=== PATIENT | male | born 1960 | race Caucasian/White ===

== ENCOUNTER 2018-01-02 00:06 | Inpatient (IN) | payer BC ==
--- NOTE | 2018-01-02 00:37 | PDOC ---
History of Present Illness - General History Source: Patient, EMS, Family Exam Limitations: No Limitations, Intoxication - History of Present Illness Initial Comments: 01/02/18 00:59 The patient is a 57 year old male with past medical history of hypertension, hyperlipidemia, and depression who was brought in to the ED via EMS for intox. Since yesterday was , the patient was reminiscing of his son who had passed and started to binge drink. As per EMS the patient drank about 15 beers on top of taking 2 percocets, 1 xanax, and 10 unisom. In the ED the patient is asymptomatic. He states as soon as he leaves he will probably go back home and drink another beer. He denies any complaints. <Steph Colon - Last Filed: 01/02/18 01:50> <Carol Franco - Last Filed: 01/02/18 02:18> - General Chief Complaint: Alcohol intoxication Stated Complaint: INTOX,OVERDOSE Time Seen by Provider: 01/02/18 00:36 Past History <Steph Colon - Last Filed: 01/02/18 01:50> - Past Medical History HTN: Yes (not diagnosed) Hypercholesterolemia: Yes - Surgical History Abdominal Surgery: Yes (HERNIA) - Suicide/Smoking/Psychosocial Hx Smoking History: Current some day smoker Have you smoked in the past 12 months: No Information on smoking cessation initiated: No Hx Alcohol Use: Yes Drug/Substance Use Hx: Yes Substance Use Type: Alcohol <Carol Franco - Last Filed: 01/02/18 02:18> - Past Medical History Allergies/Adverse Reactions: Allergies Allergy/AdvReac Type Severity Reaction Status Date / Time No Known Allergies Allergy Verified 01/02/18 00:28 Home Medications: Ambulatory Orders Atorvastatin Ca [Lipitor -] 20 mg PO HS 04/14/15 Omeprazole [Prilosec] 20 mg PO DAILY 04/14/15 Oxycodone HCl/Acetaminophen [Percocet 10-325 mg Tablet -] 1 tab PO TID 04/14/15 Zolpidem Tartrate [Ambien] 2.5 mg PO HS 04/14/15 Review of Systems - Review of Systems Able to Perform ROS?: No (Intox) <Steph Colon - Last Filed: 01/02/18 01:50> *Physical Exam - Vital Signs Last Vital Signs Temp Pulse Resp BP Pulse Ox 98.1 F 95 H 20 120/100 01/02/18 00:25 01/02/18 00:25 01/02/18 00:25 01/02/18 00:25 - Physical Exam Comments: 01/02/18 00:59 GENERAL: Awake, alert, weepy, intoxicated HEAD: No signs of trauma EYES: PERRLA, EOMI, sclera anicteric, conjunctiva clear ENT: Auricles normal inspection, hearing grossly normal, nares patent, oropharynx clear without exudates. Moist mucosa NECK: Normal ROM, supple, no lymphadenopathy, JVD, or masses LUNGS: Breath sounds equal, clear to auscultation bilaterally. No wheezes, and no crackles HEART: Regular rate and rhythm, normal S1 and S2, no murmurs, rubs or gallops ABDOMEN: Reducible umbilical hernia, bilateral non-incarcerated inguinal hernias. Soft, nontender, normoactive bowel sounds. No guarding, no rebound. No masses EXTREMITIES: Normal range of motion, no edema. No clubbing or cyanosis. No cords, erythema, or tenderness NEUROLOGICAL: Cranial nerves II through XII grossly intact. Normal speech SKIN: Warm, Dry, normal turgor, no rashes or lesions noted. <Steph Colon - Last Filed: 01/02/18 01:50> - Vital Signs Last Vital Signs Temp Pulse Resp BP Pulse Ox 98.1 F 95 H 20 120/100 01/02/18 00:25 01/02/18 00:25 01/02/18 00:25 01/02/18 00:25 <Carol Franco - Last Filed: 01/02/18 02:18> ED Treatment Course - LABORATORY CBC & Chemistry Diagram: 01/02/18 01:00 01/02/18 01:00 <Steph Colon - Last Filed: 01/02/18 01:50> - LABORATORY CBC & Chemistry Diagram: 01/02/18 01:00 01/02/18 01:00 <Carol Franco - Last Filed: 01/02/18 02:18> Medical Decision Making - Medical Decision Making 01/02/18 02:03 57-year-old male is depressed on Father's Day because he's reminiscing about his son who 2 years ago. States that he drank about 15 beers, took 2 Percocets, lungs and examined 10 Unisom tablets. Spoke with poison control . I spoke with [id number] and the concerns for Unisom overdose are increased QRS intervals, increased CPKs due to rhabdomyolysis and seizures. - Recommended repeat chemistry in 4-6 hours and a repeat EKG and 4-6 hours. Concern also for respiratory depression with a combination of Xanax and alcohol Alcohol level of 232 Impression alcohol in tox, overdose. Admit <Carol Franco - Last Filed: 01/02/18 02:18> *DC/Admit/Observation/Transfer - Attestations Scribe Attestion: 01/02/18 01:01 Documentation prepared by Steph Colon, acting as medical records library professor for Carol Franco MD. <Steph Colon - Last Filed: 01/02/18 01:50> - Discharge Dispostion Decision to Admit order: Yes <Carol Franco - Last Filed: 01/02/18 02:18> Diagnosis at time of Disposition: Alcohol intoxication Qualifiers: Complication of substance-induced condition: uncomplicated Qualified Code(s): F10.920 - Alcohol use, unspecified with intoxication, uncomplicated Overdose of drug/medicinal substance Qualifiers: Encounter type: initial encounter Injury intent: undetermined intent Qualified Code(s): T50.904A - Poisoning by unspecified drugs, medicaments and biological substances, undetermined, initial encounter - Discharge Dispostion Condition at time of disposition: Fair
[2018-01-02] MEDS ORDERED: SODIUM CHLORIDE 1,000 ML IV STA (00:38)
[2018-01-02 01:17] LABS: BASO % 0.8 % (0-2.0); EOS % 1.2 % (0-4.5); HEMATOCRIT 41.8 % (35.4-49); HEMOGLOBIN 14.1 GM/dL (11.7-16.9); LYMPH % 34.8 % (8-40); MCH 32.4 pg (25.7-33.7); MCHC 33.7 g/dl (32.0-35.9); MEAN CELL VOLUME 95.9 fl (80-96); MEAN PLT VOLUME 9.7 fl (7.5-11.1); MONO % 11.9 % (3.8-10.2); NEUT % 51.3 % (42.8-82.8); PLATELET COUNT 136 K/MM3 (134-434); RBC 4.36 M/mm3 (4.00-5.60); RDW 14.6 % (11.9-15.9); WHITE BLOOD COUNT 6.3 K/mm3 (4.0-10.0)
[2018-01-02 01:27] LABS: INR 1.17 (0.82-1.09); PROTHROMBIN TIME (PATIENT) 13.2 SEC (9.7-13.0)
[2018-01-02 01:37] LABS: SALICYLATE < 1.70 mg/dL
[2018-01-02 01:38] LABS: ALBUMIN 3.8 g/dl (3.4-5.0); ALK PHOS 95 U/L (45-117); ANION GAP 9 (8-16); BILIRUBIN,TOTAL 0.7 mg/dL (0.2-1.0); BLOOD UREA NITROGEN 17 mg/dL (7-18); CALCIUM 9.8 mg/dL (8.5-10.1); CHLORIDE 105 mmol/L (98-107); CO2 24 mmol/L (21-32); CREATININE 0.9 mg/dL (0.7-1.3); GLUCOSE,RANDOM 100 mg/dL (74-106); POTASSIUM 4.2 mmol/L (3.5-5.1); SGOT/AST 188 U/L (15-37); SGPT/ALT 155 U/L (12-78); SODIUM 138 mmol/L (136-145); TOT PROT 7.7 g/dl (6.4-8.2)
[2018-01-02 01:39] LABS: ACETAMINOPHEN <2.0 ug/mL
[2018-01-02] MEDS ORDERED: FOLIC ACID INJECTION - 1 MG, THIAMINE HCL 100 MG, MULTIVIT INJECTION ADULT 10 ML in SOD... IVPB ONE (01:46)
[2018-01-02 02:03] LABS: URINE APPEARANCE CLEAR; URINE BILIRUBIN NEGATIVE (<2.0 mg/dL); URINE COLOR COLORLESS; URINE GLUCOSE (UA) NEGATIVE (NEGATIVE); URINE KETONE NEGATIVE (NEGATIVE); URINE LEUK ESTERASE NEGATIVE (NEGATIVE); URINE NITRITE NEGATIVE (NEGATIVE); URINE PROTEIN NEGATIVE (NEGATIVE); URINE UROBILINOGEN NEGATIVE mg/dL (0.2-1.0)
[2018-01-02 03:08] LABS: COCAINE, UR NEGATIVE ng/ml (CUTOFF=300); METHADONE, UR NEGATIVE ng/ml (CUTOFF=300); OPIATES, URI NEGATIVE ng/ml (CUTOFF=300); PHENCYCLIDINE,URINE NEGATIVE ng/ml (CUTOFF=25); URINE AMPHETAMINES NEGATIVE ng/ml (CUTOFF=500); URINE BARBITURATES NEGATIVE ng/ml (CUTOFF=200); URINE BENZODIAZEPINES NEGATIVE ng/ml (CUTOFF=200)
--- NOTE | 2018-01-02 03:20 | HP ---
CHIEF COMPLAINT: ETOH, unisom overdose PCP: HISTORY OF PRESENT ILLNESS: This is a 57 year old male with past medical history of HT, HLD, depression who was brought to ED by family who due to alcohol intoxication and pill ingestion. EMS and pt report he drank about 15 beers, took about 10 unisom, 2 oxycodone ( total 20mg) and one xanax. Pt states that he wasn't trying to hurt himself or kill himself; he just wants to sleep. As it is father's day he was thinking of his son and became upset. Upon exam pt is intoxicated, able to answer simple questions. He is complaining of inability to sit still. ER course was notable for: (1) Alcohol 232 (2) salicylate and tylenol levels negative (3) Recent Travel: unknown PAST MEDICAL HISTORY: HTN, HLD, depression PAST SURGICAL HISTORY: hernia Social History: Smoking: unk Alcohol: denies habitual use Drugs: denies habitual use Family History: unk Allergies No Known Allergies Allergy (Verified 01/02/18 00:28) HOME MEDICATIONS: 3 Medication Instructions Recorded Atorvastatin Ca [Lipitor -] 20 mg PO HS 04/14/15 Lisinopril 0 mg PO DAILY 01/02/18 Metoprolol Tartrate 0 mg PO DAILY 01/02/18 Oxycodone HCl 10 mg PO QID PRN 01/02/18 REVIEW OF SYSTEMS CONSTITUTIONAL: Absent: fever, chills, diaphoresis, generalized weakness, malaise, loss of appetite, weight change HEENT: Absent: rhinorrhea, nasal congestion, throat pain, throat swelling, difficulty swallowing, mouth swelling, ear pain, eye pain, visual changes CARDIOVASCULAR: Absent: chest pain, syncope, palpitations, irregular heart rate, lightheadedness , peripheral edema RESPIRATORY: Absent: cough, shortness of breath, dyspnea with exertion, orthopnea, wheezing, stridor, hemoptysis GASTROINTESTINAL: Absent: abdominal pain, abdominal distension, nausea, vomiting, diarrhea, constipation, melena, hematochezia GENITOURINARY: Absent: dysuria, frequency, urgency, hesitancy, hematuria, flank pain, genital pain MUSCULOSKELETAL: Absent: myalgia, arthralgia, joint swelling, back pain, neck pain SKIN: Absent: rash, itching, pallor HEMATOLOGIC/IMMUNOLOGIC: Absent: easy bleeding, easy bruising, lymphadenopathy, frequent infections ENDOCRINE: Absent: unexplained weight gain, unexplained weight loss, heat intolerance, cold intolerance NEUROLOGIC: Absent: headache, focal weakness or paresthesias, dizziness, unsteady gait, seizure, mental status changes, bladder or bowel incontinence PSYCHIATRIC: depression, alcohol intoxication Absent: anxiety, suicidal or homicidal ideation, hallucinations. PHYSICAL EXAMINATION Vital Signs - 24 hr 3 01/02/18 01/02/18 00:25 02:50 Temperature 98.1 F Pulse Rate 95 H 78 Respiratory 20 16 Rate Blood Pressure 120/100 114/72 GENERAL: Awake, alert, and fully oriented, in no acute distress. HEAD: Normal with no signs of trauma. EYES: Pupils equal, round and reactive to light, extraocular movements intact, sclera anicteric, conjunctiva clear. No lid lag. EARS, NOSE, THROAT: Ears normal, nares patent, oropharynx clear without exudates. Moist mucous membranes. NECK: Normal range of motion, supple without lymphadenopathy, JVD, or masses. LUNGS: Breath sounds equal, clear to auscultation bilaterally. No wheezes, and no crackles. No accessory muscle use. HEART: Regular rate and rhythm, normal S1 and S2 without murmur, rub or gallop. ABDOMEN: Soft, not distended, normoactive bowel sounds, no guarding, no rebound , no masses. No hepatomegaly or splenomegaly. Initially tender upon exam, resolved after urinating 850cc. MUSCULOSKELETAL: Normal range of motion at all joints. No bony deformities or tenderness. No CVA tenderness. R flank noted with soft tissue mass, mobile, nontender, approx 5cm x 2cm x 2cm UPPER EXTREMITIES: 2+ pulses, warm, well-perfused. No cyanosis. No clubbing. No peripheral edema. LOWER EXTREMITIES: 2+ pulses, warm, well-perfused. No calf tenderness. No peripheral edema. NEUROLOGICAL: Cranial nerves II-XII intact. Normal speech. Unsteady gait. involuntary jerking of legs, body; resolved after urinating PSYCHIATRIC: Cooperative. Good eye contact. Appropriate mood and affect. SKIN: Warm, dry, normal turgor, no rashes or lesions noted, normal capillary refill. Laboratory Results - last 24 hr 3 01/02/18 01/02/18 01/02/18 01:00 01:00 01:00 WBC 6.3 RBC 4.36 Hgb 14.1 Hct 41.8 MCV 95.9 MCH 32.4 MCHC 33.7 RDW 14.6 Plt Count 136 MPV 9.7 Absolute Neuts (auto) 3.2 Neutrophils % 51.3 Lymphocytes % 34.8 Monocytes % 11.9 H Eosinophils % 1.2 Basophils % 0.8 Nucleated RBC % 0 PT with INR 13.20 H INR 1.17 H Sodium 138 Potassium 4.2 Chloride 105 Carbon Dioxide 24 Anion Gap 9 BUN 17 Creatinine 0.9 Creat Clearance w eGFR > 60 Random Glucose 100 Calcium 9.8 Total Bilirubin 0.7 AST 188 H ALT 155 H Alkaline Phosphatase 95 Total Protein 7.7 Albumin 3.8 Urine Color Urine Appearance Urine pH Ur Specific Baker Urine Protein Urine Glucose (UA) Urine Ketones Urine Blood Urine Nitrite Urine Bilirubin Urine Urobilinogen Ur Leukocyte Esterase Salicylates Acetaminophen Alcohol, Quantitative 3 01/02/18 01/02/18 01:00 01:20 WBC RBC Hgb Hct MCV MCH MCHC RDW Plt Count MPV Absolute Neuts (auto) Neutrophils % Lymphocytes % Monocytes % Eosinophils % Basophils % Nucleated RBC % PT with INR INR Sodium Potassium Chloride Carbon Dioxide Anion Gap BUN Creatinine Creat Clearance w eGFR Random Glucose Calcium Total Bilirubin AST ALT Alkaline Phosphatase Total Protein Albumin Urine Color Colorless Urine Appearance Clear Urine pH 5.0 Ur Specific Baker 1.003 Urine Protein Negative Urine Glucose (UA) Negative Urine Ketones Negative Urine Blood Negative Urine Nitrite Negative Urine Bilirubin Negative Urine Urobilinogen Negative Ur Leukocyte Esterase Negative Salicylates < 1.70 Acetaminophen <2.0 Alcohol, Quantitative 232.9 H* ECG Normal sinus rhythm Vent rate 80, QTC [address]/T wave changes ASSESSMENT/PLAN: 57yM with PMH HTN, HLD, depression presented to the ED with alcohol intoxication and pill ingestion. Unisom overdose - unsure whether active ingredient diphenhydramine or doxylamine - D/W poison control who states severe toxic effects such as seizure activity not likely to be seen until 7mg/kg ingestion, pt reported ingestion is 3mg/kg - monitor for anticholingergic effects, QRS prolongation and seizures - recommend repeat BMP and ECG 4-6 hours, labs and ecg ordered for am - psych consult ETOH intoxication - banana bag given in ED. - monitor until sober soft tissue mass right flank, likely fatty lipoma - nontender, pt states it used to be larger. Outpatient follow up with PCP elevated LFTs - repeat in am - consider US in am vs outpatient workup HTN/HLD - hold home meds for now, pt unsure of dosages DVT PPX - heparin deferred as anticipated LOS <48h FEN - tolerating po - BMP in am - low sodium diet as tolerated in am Dispo: Pt currently requires further observation. Hospitalist Screening - Colonoscopy Questionnaire Colonoscopy Questionnaire: Colonoscopy Questionnaire
[2018-01-02 06:46] LABS: BASO % 0.9 % (0-2.0); EOS % 1.3 % (0-4.5); HEMOGLOBIN 12.4 GM/dL (11.7-16.9); LYMPH % 38.3 % (8-40); MCH 32.8 pg (25.7-33.7); MCHC 34.3 g/dl (32.0-35.9); MEAN CELL VOLUME 95.6 fl (80-96); MEAN PLT VOLUME 8.8 fl (7.5-11.1); MONO % 11.7 % (3.8-10.2); NEUT % 47.8 % (42.8-82.8); PLATELET COUNT 77 K/MM3 (134-434); RBC 3.77 M/mm3 (4.00-5.60); RDW 14.2 % (11.9-15.9); WHITE BLOOD COUNT 3.3 K/mm3 (4.0-10.0)
[2018-01-02 07:11] LABS: ALBUMIN 3.2 g/dl (3.4-5.0); ANION GAP 6 (8-16); BLOOD UREA NITROGEN 16 mg/dL (7-18); CALCIUM 8.8 mg/dL (8.5-10.1); CHLORIDE 112 mmol/L (98-107); CO2 24 mmol/L (21-32); GLUCOSE,RANDOM 91 mg/dL (74-106); MAGNESIUM 1.6 mg/dL (1.8-2.4); PHOSPHOROUS 2.5 mg/dL (2.5-4.9); POTASSIUM 4.7 mmol/L (3.5-5.1); SGOT/AST 134 U/L (15-37); SGPT/ALT 119 U/L (12-78); SODIUM 142 mmol/L (136-145)
[2018-01-02 07:13] LABS: ALK PHOS 75 U/L (45-117); BILIRUBIN,TOTAL 0.9 mg/dL (0.2-1.0); CREATININE 0.8 mg/dL (0.7-1.3); TOT PROT 6.3 g/dl (6.4-8.2)
--- NOTE | 2018-01-02 08:39 | PN ---
Mental Health Exam - Mental Status Exam Alert and Oriented to: Time, Place, Person Cognitive Function: Grossly Intact Patient Appearance: Unkempt, Disheveled Mood: Depressed, Fearful, Apprehensive, Irritable Affect: Labile Patient Behavior: Crying, Fearful, Cooperative Speech Pattern: Clear, Tangential Voice Loudness: Mildly Soft/Quiet Thought Process: Circumstantial, Tangential Thought Disorder: Not Present Hallucinations: Denies Suicidal Ideation: Current (WANT TO , FEELS LIFE IS HOPELESS. ), Plan Homicidal Ideation: None Insight/Judgement: Impaired (TAKE AN OD IN ATTEMPT NOT TO WAKE UP. ) Sleep: Difficulty falling asleep Appetite: Poor, Weight loss Muscle strength/Tone: Normal Gait/Station: Deferred
--- NOTE | 2018-01-02 08:45 | PN ---
Progress Note (short form) - Note Progress Note: THIS IS A 57 YO MALE WITH SEVERE SUICIDAL IDEATION WITH A PLAN TO KILL HIMSELF LAST EVENING BY OVER DOSE ON VARIOUS OVER COUNTER PILLS AND ALCHOL. FEELS HOPELESS, HELPLESS, TEARFUL WHEN SPEAKING ABOUT LOSS OF HIS SON RECENTLY, ESPECIALLY ACUTE ON DAY. AND BEREAVEMENT OF PARENTS THAT HE HAS NOT DEALTH WITH. HAS 1 SURVIVING DAUGHTER IN [place]. . BROTHER AND NIECE LIVE IN 2 FAMILY HOME IN SEPARATE APARTMENTS. HE IS IN THERAPY BUT UNABLE TO SEE [id number] AND NEEDS INPATIENT PSYCHIARTY CARE. SPOKE WITH RN IN CHARGE [facility] IN eR.
[2018-01-02] MEDS ORDERED: MAGNESIUM OXIDE 400 MG TABLET (FP) PO ONE (10:00)
--- NOTE | 2018-01-02 10:39 | PN ---
Progress Note (short form) - Note Progress Note: Subjective: The patient was seen in the ED, 1:1 observation. The patient reports he took "the pills to not wake up". He reports hopelessness and helplessness. He states suicidal ideations. 2PC paperwork in chart signed Objective: Vital Signs Period Temp Pulse Resp BP Sys/Mcgrath Pulse Ox Last 24 Hr 98.1 F 79-95 18-20 114-120/61-100 95-100 Physical Exam: General: NAD, A&Ox3 Lungs: CTA bilaterally Heart: RRR, S1S2 Abd: Soft, non-tender, non-distended Ext: Warm, well-perfused. No edema CBCD WBC 3.3 K/mm3 (4.0-10.0) L D 01/02/18 06:25 RBC 3.77 M/mm3 (4.00-5.60) L 01/02/18 06:25 Hgb 12.4 GM/dL (11.7-16.9) D 01/02/18 06:25 Hct 36.0 % (35.4-49) 01/02/18 06:25 MCV 95.6 fl (80-96) 01/02/18 06:25 MCHC 34.3 g/dl (32.0-35.9) 01/02/18 06:25 RDW 14.2 % (11.9-15.9) 01/02/18 06:25 Plt Count 77 K/MM3 (134-434) L D 01/02/18 06:25 MPV 8.8 fl (7.5-11.1) 01/02/18 06:25 CMP Sodium 142 mmol/L (136-145) 01/02/18 06:25 Potassium 4.7 mmol/L (3.5-5.1) 01/02/18 06:25 Chloride 112 mmol/L (98-107) H 01/02/18 06:25 Carbon Dioxide 24 mmol/L (21-32) 01/02/18 06:25 Anion Gap 6 (8-16) L 01/02/18 06:25 BUN 16 mg/dL (7-18) 01/02/18 06:25 Creatinine 0.8 mg/dL (0.7-1.3) 01/02/18 06:25 Creat Clearance w eGFR > 60 (>60) 01/02/18 06:25 Random Glucose 91 mg/dL (74-106) 01/02/18 06:25 Calcium 8.8 mg/dL (8.5-10.1) 01/02/18 06:25 Total Bilirubin 0.9 mg/dL (0.2-1.0) D 01/02/18 06:25 AST 134 U/L (15-37) H D 01/02/18 06:25 ALT 119 U/L (12-78) H D 01/02/18 06:25 Alkaline Phosphatase 75 U/L (45-117) D 01/02/18 06:25 Total Protein 6.3 g/dl (6.4-8.2) L 01/02/18 06:25 Albumin 3.2 g/dl (3.4-5.0) L 01/02/18 06:25 Assessment: This is a 57 year old female with PMHx of CAD (cardiac stents 3 years ago), HTN, hyperlipidemia, chronic back pain, who presented to the ED s/p suicide attempt with pill ingestion (unisom, oxycodone, xanax). Plan: 1) Suicide attempt/ideation - 2PC - 1:1 observation - For inpatient psych placement - Appreciate psych consult 2) Alcohol intoxication - No evidence of alcohol withdrawal, continue to monitor 3) Elevated AST/ALT - Levels trending down, will need outpatient follow-up in 2-3 days 4) Depression - For inpatient psych treatment 5) CAD s/p cardiac stents (3 years ago) - Continue ASA - Continue Lipitor 6) HTN - Continue Toprol XL - Continue Lisinopril 7) GERD - Continue Omeprazole 8) F/E/N: - Sodium controlled diet 9) Dispo: - Patient medically stable for transfer to inpatient psychiatric facility - Discussed plan with patient and brother (Cortez) at the bedside Visit type - Emergency Visit Emergency Visit: Yes ED Registration Date: 01/02/18 Care time: The patient presented to the Emergency Department on the above date and was hospitalized for further evaluation of their emergent condition. - New Patient This patient is new to me today: Yes Date on this admission: 01/02/18 - Critical Care Critical Care patient: No
[2018-01-02] MEDS ORDERED: metoPROLOL SUCCINATE 25 MG TAB.SR.24H (FP) PO SCH (11:15)
[2018-01-02] MEDS ORDERED: LISINOPRIL 10 MG TABLET (FP) PO SCH (11:15)
[2018-01-02] MEDS ORDERED: ASPIRIN COATED 81 MG TABLET.EC PO SCH (11:15)
[2018-01-02] MEDS ORDERED: PANTOPRAZOLE 40 MG TABLET (FP) PO SCH (11:15)
[2018-01-02] MEDS ORDERED: PANTOPRAZOLE 40 MG TABLET (FP) ONE (12:48)
[2018-01-02] MEDS ORDERED: LISINOPRIL 5 MG TABLET (FP) ONE (12:48)
[2018-01-02] MEDS ORDERED: ASPIRIN 81 MG CHEWABLE TABLETS ONE (12:49)
--- NOTE | 2018-01-02 13:54 | EKG ---
Test Reason : Blood Pressure : / mmHG Vent. Rate : 080 BPM Atrial Rate : 080 BPM P-R Int : 124 ms QRS Dur : 104 ms QT Int : 384 ms P-R-T Axes : 023 064 052 degrees QTc Int : 442 ms NORMAL SINUS RHYTHM NORMAL ECG NO PREVIOUS ECGS AVAILABLE Confirmed by CLYDE METCALF MD ([id number]) on 01/02/2018 1:54:03 PM Referred By: Confirmed By:CLYDE METCALF MD
[2018-01-02] MEDS ORDERED: ESCITALOPRAM OXALATE 10 MG TABLET (FP) PO ONE (16:37)
[2018-01-02] MEDS ORDERED: chlordiazePOXIDE HCL 25 MG CAPSULE PO ONE (17:19)
[2018-01-02] MEDS ORDERED: ESCITALOPRAM OXALATE 10 MG TABLET (FP) ONE (17:31)
[2018-01-02] MEDS ORDERED: chlordiazePOXIDE HCL 25 MG CAPSULE ONE (17:33)
[2018-01-02] MEDS ORDERED: ATORVASTATIN CA 80 MG TABLET (FP) ONE ×2 (21:48→22:00)
[2018-01-02] MEDS ORDERED: ATORVASTATIN CA 80 MG TABLET (FP) PO SCH (22:00)
--- NOTE | 2018-01-02 22:26 | PDOC ---
*Physical Exam - Vital Signs Last Vital Signs Temp Pulse Resp BP Pulse Ox 98 F 74 20 130/85 97 01/02/18 13:12 01/02/18 13:12 01/02/18 13:12 01/02/18 13:12 01/02/18 19:43 ED Treatment Course - LABORATORY CBC & Chemistry Diagram: 01/02/18 06:25 01/02/18 06:25 - ADDITIONAL ORDERS Additional order review: 01/02/18 01:00 RBC 4.36 MCV 95.9 MCHC 33.7 RDW 14.6 MPV 9.7 Neutrophils % 51.3 Lymphocytes % 34.8 Monocytes % 11.9 H Eosinophils % 1.2 Basophils % 0.8 - Medications Given in the ED: ED Medications Discontinued Medications Generic Name Dose Route Start Last Admin Trade Name Freq PRN Reason Stop Dose Admin Chlordiazepoxide HCl 50 mg 01/02/18 17:19 01/02/18 17:37 Librium - PO 01/02/18 17:20 50 mg ONCE ONE Administration Escitalopram Oxalate 10 mg 01/02/18 16:37 01/02/18 17:37 Lexapro - PO 01/02/18 16:38 10 mg NOW ONE Administration Sodium Chloride 1,000 mls @ 1,000 mls/hr 01/02/18 00:38 01/02/18 01:39 Normal Saline - IV 01/02/18 01:37 1,000 mls/hr ASDIR STA Administration Folic Acid 1 mg/ Thiamine HCl 1,000 mls @ 125 mls/hr 01/02/18 01:46 01/02/18 02:15 100 mg/ Multivitamins/Minerals IVPB 01/02/18 09:45 125 mls/hr 10 ml/ Sodium Chloride ONCE ONE Administration Magnesium Oxide 400 mg 01/02/18 10:00 01/02/18 13:11 Mag-Ox - PO 01/02/18 10:01 400 mg ONCE ONE Administration Medical Decision Making - Medical Decision Making 01/02/18 22:26 pt DOWNGRADED to MED/surg *DC/Admit/Observation/Transfer Diagnosis at time of Disposition: Alcohol intoxication Qualifiers: Complication of substance-induced condition: uncomplicated Qualified Code(s): F10.920 - Alcohol use, unspecified with intoxication, uncomplicated Overdose of drug/medicinal substance Qualifiers: Encounter type: initial encounter Injury intent: undetermined intent Qualified Code(s): T50.904A - Poisoning by unspecified drugs, medicaments and biological substances, undetermined, initial encounter - Discharge Dispostion Condition at time of disposition: Fair Decision to Admit order: Yes - Referrals - Patient Instructions - Post Discharge Activity
[2018-01-03 02:53] VITALS: BMI 25.1
[2018-01-03] MEDS: chlordiazePOXIDE HCL 25 MG CAPSULE PO PRN ×2 (06:16→10:44)
[2018-01-03 08:11] LABS: ALBUMIN 3.4 g/dl (3.4-5.0); ANION GAP 7 (8-16); BILIRUBIN,TOTAL 1.8 mg/dL (0.2-1.0); BLOOD UREA NITROGEN 19 mg/dL (7-18); CALCIUM 9.6 mg/dL (8.5-10.1); CHLORIDE 110 mmol/L (98-107); CO2 24 mmol/L (21-32); CREATININE 0.9 mg/dL (0.7-1.3); GLUCOSE,RANDOM 94 mg/dL (74-106); POTASSIUM 3.8 mmol/L (3.5-5.1); SGOT/AST 168 U/L (15-37); SGPT/ALT 142 U/L (12-78); SODIUM 141 mmol/L (136-145)
[2018-01-03 08:12] LABS: ALK PHOS 85 U/L (45-117); TOT PROT 6.6 g/dl (6.4-8.2)
[2018-01-03] MEDS ORDERED: LISINOPRIL 10 MG TABLET (FP) PO SCH (10:00)
[2018-01-03] MEDS ORDERED: metoPROLOL SUCCINATE 25 MG TAB.SR.24H (FP) PO SCH (10:00)
[2018-01-03] MEDS ORDERED: PANTOPRAZOLE 40 MG TABLET (FP) PO SCH (10:00)
[2018-01-03] MEDS ORDERED: ASPIRIN COATED 81 MG TABLET.EC PO SCH (10:00)
[2018-01-03 14:15] VITALS: BP 135/58; PULSE 75; TEMP 97.4
--- NOTE | 2018-01-03 15:13 | EKG ---
Test Reason : Blood Pressure : / mmHG Vent. Rate : 071 BPM Atrial Rate : 071 BPM P-R Int : 136 ms QRS Dur : 108 ms QT Int : 400 ms P-R-T Axes : 058 063 053 degrees QTc Int : 434 ms NORMAL SINUS RHYTHM NORMAL ECG WHEN COMPARED WITH ECG OF 02-JAN-2018 01:02, NO SIGNIFICANT CHANGE WAS FOUND Confirmed by MD Mcdonnell Edward ([id number]) on 01/03/2018 3:12:50 PM Referred By: Confirmed By:Joce Mcdonnell MD
--- NOTE | 2018-01-03 15:25 | PN ---
Progress Note (short form) - Note Progress Note: Subjective: The patient was seen in the solar[facility], he is still on 1:1 observation. He reports he would like to go home and go back to work. Denies any suicidal ideation at this time. Elevated liver enzymes and total bili. Patient refusing repeat labs and is refusing liver ultrasound/hepatitis panel. He states he does not want any further workup for his liver at this time. He denies any fever, chills, abdominal pain Current Medications Generic Name Dose Route Start Last Admin Trade Name Freq PRN Reason Stop Dose Admin Aspirin 81 mg 01/03/18 10:00 01/03/18 10:44 Ecotrin - PO 81 mg DAILY DANTE Administration Atorvastatin Calcium 80 mg 01/03/18 22:00 Lipitor - PO HS DANTE Chlordiazepoxide HCl 25 mg 01/02/18 18:53 01/03/18 10:44 Librium - PO 25 mg Q4H PRN Administration WITHDRAWAL(CONT SUBST) Lisinopril 10 mg 01/03/18 10:00 01/03/18 10:44 Prinivil PO 10 mg DAILY DANTE Administration Metoprolol Succinate 25 mg 01/03/18 10:00 Toprol Xl - PO DAILY DANTE Pantoprazole Sodium 40 mg 01/03/18 10:00 01/03/18 10:44 Protonix - PO 40 mg DAILY DANTE Administration Objective: Vital Signs Period Temp Pulse Resp BP Sys/Mcgrath Pulse Ox Last 24 Hr 97.4 F-98.1 F 68-75 20-20 135-156/58-80 97-100 Physical Exam: General: NAD, A&Ox3 Lungs: CTA bilaterally Heart: RRR, S1S2 Abd: Soft, non-tender, non-distended Ext: Warm, well-perfused. No edema CBCD WBC 3.3 K/mm3 (4.0-10.0) L D 01/02/18 06:25 RBC 3.77 M/mm3 (4.00-5.60) L 01/02/18 06:25 Hgb 12.4 GM/dL (11.7-16.9) D 01/02/18 06:25 Hct 36.0 % (35.4-49) 01/02/18 06:25 MCV 95.6 fl (80-96) 01/02/18 06:25 MCHC 34.3 g/dl (32.0-35.9) 01/02/18 06:25 RDW 14.2 % (11.9-15.9) 01/02/18 06:25 Plt Count 77 K/MM3 (134-434) L D 01/02/18 06:25 MPV 8.8 fl (7.5-11.1) 01/02/18 06:25 CMP Sodium 141 mmol/L (136-145) 01/03/18 06:30 Potassium 3.8 mmol/L (3.5-5.1) 01/03/18 06:30 Chloride 110 mmol/L (98-107) H 01/03/18 06:30 Carbon Dioxide 24 mmol/L (21-32) 01/03/18 06:30 Anion Gap 7 (8-16) L 01/03/18 06:30 BUN 19 mg/dL (7-18) H 01/03/18 06:30 Creatinine 0.9 mg/dL (0.7-1.3) 01/03/18 06:30 Creat Clearance w eGFR > 60 (>60) 01/03/18 06:30 Random Glucose 94 mg/dL (74-106) 01/03/18 06:30 Calcium 9.6 mg/dL (8.5-10.1) 01/03/18 06:30 Total Bilirubin 1.8 mg/dL (0.2-1.0) H D 01/03/18 06:30 AST 168 U/L (15-37) H D 01/03/18 06:30 ALT 142 U/L (12-78) H 01/03/18 06:30 Alkaline Phosphatase 85 U/L (45-117) 01/03/18 06:30 Total Protein 6.6 g/dl (6.4-8.2) 01/03/18 06:30 Albumin 3.4 g/dl (3.4-5.0) 01/03/18 06:30 CARDIAC ENZYMES Creatine Kinase 70 IU/L (39-308) 01/03/18 06:30 Assessment: This is a 57 year old female with PMHx of CAD (cardiac stents 3 years ago), HTN, hyperlipidemia, chronic back pain, who presented to the ED s/p suicide attempt with pill ingestion (unisom, oxycodone, xanax). Plan: 1) Suicide attempt/ideation - 2PC - 1:1 observation - For inpatient psych placement - Appreciate psych consult; awaiting reevaluation by psych 2) Alcohol intoxication - No evidence of alcohol withdrawal, continue to monitor - PRN librium 3) Elevated AST/ALT/total bili - Patient refusing workup (including labs, liver ultrasound, hepatitis panel) 4) Depression - For inpatient psych treatment 5) CAD s/p cardiac stents (3 years ago) - Continue ASA - Continue Lipitor 6) HTN - Continue Toprol XL - Continue Lisinopril 7) GERD - Continue Omeprazole 8) F/E/N: - Sodium controlled diet 9) Dispo: - Patient medically stable for transfer to inpatient psychiatric facility Visit type - Emergency Visit Emergency Visit: Yes ED Registration Date: 01/02/18 Care time: The patient presented to the Emergency Department on the above date and was hospitalized for further evaluation of their emergent condition. - New Patient This patient is new to me today: No - Critical Care Critical Care patient: No
--- NOTE | 2018-01-03 17:05 | PN ---
Mental Health Exam - Mental Status Exam Alert and Oriented to: Time, Place, Person Cognitive Function: Grossly Intact Patient Appearance: Unkempt Mood: Apprehensive, Hopeful Affect: Appropriate, Mood Congruent Patient Behavior: Talkative, Cooperative Speech Pattern: Clear, Tangential Voice Loudness: Normal Thought Process: Intact Thought Disorder: Not Present Hallucinations: None Suicidal Ideation: Denies, No Plan Homicidal Ideation: None Insight/Judgement: Fair Sleep: Well Appetite: Good Muscle strength/Tone: Normal Gait/Station: Deferred
--- NOTE | 2018-01-03 17:18 | PN ---
Progress Note (short form) - Note Progress Note: THIS IS A 57 YO MALE WITH SEVERE SUICIDAL IDEATION WITH A PLAN TO KILL HIMSELF LAST EVENING BY OVER DOSE ON VARIOUS OVER COUNTER PILLS AND ALCHOL. FEELS HOPELESS, HELPLESS, TEARFUL WHEN SPEAKING ABOUT LOSS OF HIS SON RECENTLY, ESPECIALLY ACUTE ON DAY. AND BEREAVEMENT OF PARENTS THAT HE HAS NOT DEALTH WITH. HAS 1 SURVIVING DAUGHTER IN [place]. . BROTHER AND NIECE LIVE IN 2 FAMILY HOME IN SEPARATE APARTMENTS. HE IS IN THERAPY BUT UNABLE TO SEE [id number] IN [facility] AND NEEDS INPATIENT PSYCHIARTY CARE. SPOKE WITH RN IN CHARGE Collin IN e[place]. cLIENT IS SEE ON , [phone]. cLIENT IS HOPEFUL. BED BECAME AVAILABLE AT [facility]. HE IS WITH 2/10 ANXIETY, LESS WITHRAWN, VITALS wnl, REDDENED FACE. 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 DENIES SUICIDAL IDEATION, NO PLAN AT PRESENT. cLIENT WILL FOLLOW UP WITH THERAPIST IN THE COMMUNITY, HE HAS COMPETENCE TO MAKE OWN DECISIONS. SPOKE WITH umang SOSA AND RN IRON JARA ALSO. RECOMMEND START LEXAPRO 10MG DAILY, PATIENT IS AWARE,
--- NOTE | 2018-01-03 17:28 | DS ---
Physical Examination Vital Signs: Vital Signs Temperature 97.4 F L 01/03/18 14:14 Pulse Rate 75 01/03/18 14:14 Respiratory Rate 20 01/03/18 14:14 Blood Pressure 135/58 01/03/18 14:14 O2 Sat by Pulse Oximetry (%) 100 01/03/18 11:00 Labs: CBC, BMP 01/02/18 06:25 01/03/18 06:30 Discharge Summary Reason For Visit: ALCOHOLIC INTOX DRUG OVERDOSE Current Active Problems Alcohol intoxication (Acute) Overdose of drug/medicinal substance (Acute) Hospital Course: Discussed with LADI Au who has evaluated the patient and reports he has capacity to leave against medical advice and the patient no longer requires a 1: 1 observation or inpatient psych. The patient is refusing further workup for his elevated liver enzymes and would like to sign out AMA. Condition: Improved - Instructions Diet, Activity, Other Instructions: You are leaving against medical advice. Please return to the ED with new, persistent, or worsening symptoms. Please follow-up with providers as indicated. If you have any thoughts of suicide, please call the suicide prevention hotline and go to the nearest emergency department immediately. Referrals: Alek Au NP [Nurse Practitioner] - (Please follow-up with Alek Au NP within 2-3 days for further management of your depression and substance abuse. ) Edmundo Barba MD [Staff Physician] - 1 Week Garcia Calhoun MD [Staff Physician] - (Please follow-up with GI tomorrow for further evaluation of your liver enzymes. ) Disposition: AGAINST MEDICAL ADVICE - Home Medications Comprehensive Discharge Medication List: Ambulatory Orders Aspirin Coated [Ecotrin -] 81 mg PO DAILY #30 tablet.ec 01/03/18 Atorvastatin Ca [Lipitor] 80 mg PO HS #30 tablet 01/03/18 Escitalopram Oxalate [Lexapro -] 10 mg PO DAILY #30 tablet 01/03/18 Lisinopril [Prinivil] 10 mg PO DAILY #30 tablet 01/03/18 Metoprolol Succinate [Toprol XL -] 25 mg PO DAILY #30 tab.sr.24h 01/03/18 Pantoprazole Sodium [Protonix -] 40 mg PO DAILY #30 tablet.ec 01/03/18
[2018-01-03] MEDS ORDERED: ATORVASTATIN CA 80 MG TABLET (FP) PO SCH (22:00)
[2018-01-04 06:06] LABS: HEP.C VIRUS AB <0.1 s/co ratio (0.0-0.9)
== END 2018-01-03 18:42 | disposition left against medical advice (07) | DRG 918 ==
LOC: JER 00:06 → JERBED 02:18 → UNDOADMIN 02:35 → JERBED 02:35 → J5S 01-03 01:12
PROVIDERS: ADMIT Internal Medicine; ATTEND Registered Nurse
PROC: HZ2ZZZZ Detoxification Services for Substance Abuse Treatment (ICD-10-PCS; principal; 2018-01-02)
DX: T45.0X1A Poisoning by antiallergic and antiemetic drugs, accidental (unintentional), initial encounter (principal); R45.851 Suicidal ideations; T40.2X1A Poisoning by other opioids, accidental (unintentional), initial encounter; F10.920 Alcohol use, unspecified with intoxication, uncomplicated; T42.4X1A Poisoning by benzodiazepines, accidental (unintentional), initial encounter; Y92.098 Other place in other non-institutional residence as the place of occurrence of the external cause; I10 Essential (primary) hypertension; E78.00 Pure hypercholesterolemia, unspecified; F32.9 Major depressive disorder, single episode, unspecified; D17.79 Benign lipomatous neoplasm of other sites; K21.9 Gastro-esophageal reflux disease without esophagitis; I25.10 Atherosclerotic heart disease of native coronary artery without angina pectoris; M54.9 Dorsalgia, unspecified; Z95.5 Presence of coronary angioplasty implant and graft
CPT/HCPCS: 36415; 80053; 80074; 80307; 81003; 82550; 83735; 84100; 85025; 85610; 93005; 93010; 99285-25; J7030

== ENCOUNTER 2018-03-18 22:20 | Emergency (ER) | payer BC ==
[2018-03-18 22:33] VITALS: BP 109/63; PULSE 70; TEMP 97.6; BMI 25.8
[2018-03-18] MEDS ORDERED: predniSONE 20 MG TABLET (UD) PO ONE (22:46)
[2018-03-18] MEDS ORDERED: predniSONE 20 MG TABLET (UD) ONE (22:47)
--- NOTE | 2018-03-18 22:52 | PDOC ---
History of Present Illness - General History Source: Patient Exam Limitations: No Limitations - History of Present Illness Initial Comments: 03/18/18 23:06 The patient is a 57 year old male, with a significant PMH of GERD, HTN and HLD , who presents to the emergency department complaining of rash and swelling to the lower abdomen and upper thigh that began 3 days ago. The patient states pruritic rash began after his inguinal hernia surgery on 03/15/2018 and progressively worsened today, no relief with Benadryl. The patient denies chest pain, shortness of breath, headache and dizziness.Denies fever, chills, nausea, vomit. Denies difficulty swallowing. Denies lip or tongue swelling. Allergies: NKDA Past surgical history: Inguinal hernia surgery Social history: None reported PCP: Silverio Gutierrez <Aruna Miranda - Last Filed: 03/18/18 23:15> <Jenny Quach - Last Filed: 03/19/18 00:44> - General Chief Complaint: Rash Stated Complaint: HERNIA SURGERY ON TUESDAY, RASH SWELLING Time Seen by Provider: 03/18/18 22:31 Past History <Aruna Miranda - Last Filed: 03/18/18 23:15> - Past Medical History Anemia: No Asthma: No Cancer: No Cardiac Disorders: Yes (stents) CVA: No COPD: No CHF: No Dementia: No Diabetes: No GI Disorders: Yes (gerd) Disorders: No HTN: Yes Hypercholesterolemia: Yes Liver Disease: No Seizures: No Thyroid Disease: No - Surgical History Abdominal Surgery: Yes (HERNIA-right groin) Cardiac Surgery: (stents) Orthopedic Surgery: Yes (right ankle surgery,carpal tunnel right wrist) - Suicide/Smoking/Psychosocial Hx Smoking History: Never smoked Have you smoked in the past 12 months: No Information on smoking cessation initiated: No Hx Alcohol Use: Yes (BEER DAILY) Drug/Substance Use Hx: No Substance Use Type: Alcohol Hx Substance Use Treatment: No <Jenny Quach - Last Filed: 03/19/18 00:44> - Past Medical History Allergies/Adverse Reactions: Allergies Allergy/AdvReac Type Severity Reaction Status Date / Time No Known Allergies Allergy Verified 03/18/18 22:22 Home Medications: Ambulatory Orders Aspirin Coated [Ecotrin -] 81 mg PO DAILY #30 tablet.ec 01/03/18 Atorvastatin Ca [Lipitor] 80 mg PO HS #30 tablet 01/03/18 Lisinopril [Prinivil] 10 mg PO DAILY #30 tablet 01/03/18 Metoprolol Succinate [Toprol XL -] 25 mg PO DAILY #30 tab.sr.24h 01/03/18 Omeprazole 40 mg PO DAILY 03/14/18 Pravastatin Sodium [Pravachol (Nf)] 40 mg PO HS 03/14/18 Oxycodone HCl/Acetaminophen [Percocet 5-325 mg Tablet] 1 tab PO Q4H PRN #20 tablet MDD 6 03/15/18 Clobetasol Propionate [Impoyz] 2 gm TP BID #1 tube 03/18/18 Prednisone [Deltasone] 20 mg PO DAILY #2 tablet 03/18/18 Review of Systems - Review of Systems Able to Perform ROS?: Yes Comments:: 03/18/18 23:06 GENERAL/CONSTITUTIONAL: No fever or chills. No weakness. HEAD, EYES, EARS, NOSE AND THROAT: No change in vision. No ear pain or discharge. No sore throat. CARDIOVASCULAR: No chest pain or shortness of breath. RESPIRATORY: No cough, wheezing, or hemoptysis. GASTROINTESTINAL: No nausea, vomiting, diarrhea or constipation. GENITOURINARY: No dysuria, frequency, or change in urination. MUSCULOSKELETAL: No joint or muscle swelling or pain. No neck or back pain. SKIN: +Groin Rash NEUROLOGIC: No headache, vertigo, loss of consciousness, or change in strength/ sensation. ENDOCRINE: No increased thirst. No abnormal weight change. HEMATOLOGIC/LYMPHATIC: No anemia, easy bleeding, or history of blood clots. ALLERGIC/IMMUNOLOGIC: No hives or skin allergy. <Aruna Miranda - Last Filed: 03/18/18 23:15> *Physical Exam - Vital Signs Last Vital Signs Temp Pulse Resp BP Pulse Ox 97.6 F 70 16 109/63 100 03/18/18 22:28 03/18/18 22:28 03/18/18 22:28 03/18/18 22:28 03/18/18 22:28 - Physical Exam Comments: 03/18/18 23:06 GENERAL: Awake, alert, and fully oriented, in no acute distress HEAD: No signs of trauma EYES: PERRLA, EOMI, sclera anicteric, conjunctiva clear ENT: Auricles normal inspection, hearing grossly normal, nares patent, oropharynx clear without exudates. Moist mucosa NECK: Normal ROM, supple, no lymphadenopathy, JVD, or masses LUNGS: Breath sounds equal, clear to auscultation bilaterally. No wheezes, and no crackles HEART: Regular rate and rhythm, normal S1 and S2, no murmurs, rubs or gallops ABDOMEN: Soft, nontender, normoactive bowel sounds. No guarding, no rebound. No masses EXTREMITIES: Normal range of motion, no edema. No clubbing or cyanosis. No cords, erythema, or tenderness NEUROLOGICAL: Cranial nerves II through XII grossly intact. Normal speech, normal gait SKIN: +Notable erythematous diffuse maculopapular rash extending from the lower abdomen level of umbilicus to bilateral groin to bilateral anterior and medial thigh. Rash clearly delineated horizontally at proximal border as well as distal. No blistering or open wounds. No other rash evidence. <Aruna Miranda - Last Filed: 03/18/18 23:15> - Vital Signs Last Vital Signs Temp Pulse Resp BP Pulse Ox 97.6 F 70 16 109/63 100 03/18/18 22:28 03/18/18 22:28 03/18/18 22:28 03/18/18 22:28 03/18/18 22:28 <Jenny Quach - Last Filed: 03/19/18 00:44> ED Treatment Course - Medications Given in the ED: ED Medications Discontinued Medications Generic Name Dose Route Start Last Admin Trade Name Freq PRN Reason Stop Dose Admin Prednisone 20 mg 03/18/18 22:46 03/18/18 22:48 Deltasone - PO 03/18/18 22:47 20 mg ONCE ONE Administration <Aruna Miranda - Last Filed: 03/18/18 23:15> Progress Note - Progress Note Progress Note: Documentation has been prepared under my direction and personally reviewed by me in its entirety. I attest that this documented accurately reflects all work, treatment, procedures and medical decision making performed by me. <Jenny Quach - Last Filed: 03/19/18 00:44> Medical Decision Making - Medical Decision Making As noted above, this 57-year-old man presents with pruritic, erythematous rash of the lower abdomen and proximal anterior thighs for the last 3 days. Patient had bilateral inguinal hernia repair 3 days ago; rashes in the area of the surgical field. Patient contacted his general surgeon (Dr. Gutierrez). He told the patient that he thought it was the detergent prep of the surgical field and that the skin reaction would resolve over a few days with washing with mild soap. Patient states that the rash is worsening with increased itching and redness. Of note, the patient recalls having similar rash after operative repair of hernia several years ago. He has no known ALLERGIES, including iodine. Exam as noted: Upper portion of the rash is sharply delineated in a horizontal fashion at the umbilical level approximately and distally at the upper portion of bilateral thighs. This is consistent with the operative field of his bilateral inguinal hernia repair. Patient will be given 20 mg of prednisone now with prescription for 2 additional daily doses. Also, clobetasol 0.5% cream prescribed to be used twice a day for at least the next week. He should follow-up with his general surgeon within the next few days. No evidence of secondary infection of the wound currently but if he has worsening of pain/swelling/redness of the area, he should return to the ER. <Jenny Quach - Last Filed: 03/19/18 00:44> *DC/Admit/Observation/Transfer - Attestations Scribe Attestion: 03/18/18 23:07 Documentation prepared by Aruna Miranda, acting as medical and scientific illustrator for Jenny Quach MD. <Aruna Miranda - Last Filed: 03/18/18 23:15> <Jenny Quach - Last Filed: 03/19/18 00:44> Diagnosis at time of Disposition: Contact dermatitis due to iodine - Discharge Dispostion Disposition: HOME Condition at time of disposition: Stable - Prescriptions Prescriptions: Clobetasol Propionate [Impoyz] 2 gm TP BID #1 tube Prednisone [Deltasone] 20 mg PO DAILY #2 tablet - Referrals Referrals: Silverio Gutierrez MD [Staff Physician] - - Patient Instructions Printed Discharge Instructions: Contact Dermatitis Additional Instructions: Use mild soap only on the area of irritation Can use Benadryl as needed for itching Clobetasol cream twice a day to rash for the next week Prednisone 20 mg daily tomorrow and the following day(take with food) Follow-up with Dr. Gutierrez within the next 3-4 days Return to ER if area becomes more swollen/red/painful
== END 2018-03-18 22:57 | disposition home or self-care (01) ==
LOC: FER 22:20
DX: T49.0X1A Poisoning by local antifungal, anti-infective and anti-inflammatory drugs, accidental (unintentional), initial encounter (principal); L23.5 Allergic contact dermatitis due to other chemical products; Y92.89 Other specified places as the place of occurrence of the external cause; I10 Essential (primary) hypertension; E78.5 Hyperlipidemia, unspecified; K21.9 Gastro-esophageal reflux disease without esophagitis; Z98.890 Other specified postprocedural states
CPT/HCPCS: 99281-25

== ENCOUNTER 2018-04-29 00:51 | Emergency (ER) | payer BC ==
[2018-04-29 00:56] VITALS: BP 139/84; PULSE 77; TEMP 97.6; BMI 27.3
[2018-04-29] MEDS ORDERED: DIPHTH,PERTUSS(ACELL),TET 0.5 ML DISP.SYRIN IM ONE (01:14)
--- NOTE | 2018-04-29 01:14 | PDOC ---
History of Present Illness - General Chief Complaint: Laceration Stated Complaint: RH 1ST FINGER LAC Time Seen by Provider: 04/29/18 00:55 History Source: Patient Exam Limitations: No Limitations - History of Present Illness Initial Comments: 04/29/18 01:14 This is a 57-year-old male who comes in complaining of a laceration to his right first finger. Patient cut it on a knife while he was trying to pry open a can of food. Patient's last tetanus status is unknown. PAST MEDICAL HISTORY: no significant history PAST SURGICAL HISTORY: no significant history FAMILY HISTORY: no pertinant history SOCIAL HISTORY: Pt lives with family and is employed. MEDICATIONS: reviewed ALLERGIES: As per nursing notes ROS General: No fevers or chills, no weakness, no weight loss HEENT: No change in vision. No sore throat,. No ear pain CardioVascular: No chest pain or shortness of breath Respiratory:No cough, or wheezing. Gastrointestinal: no nausea, vomiting, diarrhea or constipation, No rectal bleeding Genitourinary: No dysuria, hematuria, or frequency Musculoskeletal: . No joint pain or swelling Neurologic: No headache, vertigo, dizziness or loss of consciousness Psychiatric: nor depression Skin: No rashes or easy bruising, laceration right first finger as per history of present illness Endocrine: no increased thirst or abnormal weight change Allergic: no skin or latex allergy All other systems reviewed and normal GENERAL: The patient is awake, alert, and fully oriented, in no acute distress. HEAD: Normal with no signs of trauma. EARS: Bilateral ears are normal with normal external canal. and tympanic membranes. EYES: Pupils equal, round and reactive to light, extraocular movements intact, sclera anicteric, conjunctiva clear. EXTREMITIES: Normal range of motion, no edema. Right first finger: There is approximately 3 cm laceration over the palmar surface of the distal phalanx of his thumb laceration is C-shaped with a flap component to it there does appear to be some associated decrease in sensation on the margins of the flap. NEUROLOGICAL: Normal speech, normal gait. grossly intact PSYCH: Normal mood, normal affect. SKIN: Warm, Dry, normal turgor, no rashes or lesions noted. Procedure note laceration repair Laceration was anesthetized via digital block with 4 mL of lidocaine no epinephrine Laceration was cleaned with normal saline Laceration was closed with a total of 7 simple interrupted sutures of 4-0 Ethilon bacitracin and sterile dressing was applied patient tolerated well Assessment and plan: This is a 57-year-old male with a laceration to his right thumb laceration was repaired with sutures. Patient discharged home will follow up with his primary care doctor patient's tetanus was updated here in the ED Past History - Past Medical History Allergies/Adverse Reactions: Allergies Allergy/AdvReac Type Severity Reaction Status Date / Time No Known Allergies Allergy Verified 03/18/18 22:22 Home Medications: Ambulatory Orders Aspirin Coated [Ecotrin -] 81 mg PO DAILY #30 tablet.ec 01/03/18 Atorvastatin Ca [Lipitor] 80 mg PO HS #30 tablet 01/03/18 Lisinopril [Prinivil] 10 mg PO DAILY #30 tablet 01/03/18 Metoprolol Succinate [Toprol XL -] 25 mg PO DAILY #30 tab.sr.24h 01/03/18 Omeprazole 40 mg PO DAILY 03/14/18 Pravastatin Sodium [Pravachol (Nf)] 40 mg PO HS 03/14/18 Oxycodone HCl/Acetaminophen [Percocet 5-325 mg Tablet] 1 tab PO Q4H PRN #20 tablet MDD 6 03/15/18 Clobetasol Propionate [Impoyz] 2 gm TP BID #1 tube 03/18/18 Prednisone [Deltasone] 20 mg PO DAILY #2 tablet 03/18/18 Anemia: No Asthma: No Cancer: No Cardiac Disorders: Yes (stents) CVA: No COPD: No CHF: No Dementia: No Diabetes: No GI Disorders: Yes (gerd) Disorders: No HTN: Yes Hypercholesterolemia: Yes Liver Disease: No Seizures: No Thyroid Disease: No - Surgical History Abdominal Surgery: Yes (HERNIA-right groin) Cardiac Surgery: (stents) Orthopedic Surgery: Yes (right ankle surgery,carpal tunnel right wrist) - Suicide/Smoking/Psychosocial Hx Smoking History: Never smoked Have you smoked in the past 12 months: No Hx Alcohol Use: Yes (BEER DAILY) Drug/Substance Use Hx: No Substance Use Type: Alcohol Hx Substance Use Treatment: No *Physical Exam - Vital Signs Last Vital Signs Temp Pulse Resp BP Pulse Ox 97.6 F 77 16 139/84 100 04/29/18 00:52 04/29/18 00:52 04/29/18 00:52 04/29/18 00:52 04/29/18 00:52 *DC/Admit/Observation/Transfer Diagnosis at time of Disposition: Laceration of right thumb Qualifiers: Encounter type: initial encounter Damage to nail status: without damage Foreign body presence: without foreign body Qualified Code(s): S61.011A - Laceration without foreign body of right thumb without damage to nail, initial encounter - Discharge Dispostion Disposition: HOME Condition at time of disposition: Stable Decision to Admit order: No - Referrals Referrals: William Friedman MD [Primary Care Provider] - - Patient Instructions Printed Discharge Instructions: DI for Laceration Repair Additional Instructions: Keep the laceration dry for 72 hours. Return to the ED or see her primary care doctor for suture removal in 10 days You can clean the laceration once a day with some peroxide reapply bacitracin or an antibiotic ointment and a Band-Aid for the next 4-5 days. After that once it is sealed over a can be left open. Return to the emergency department immediately with ANY new, persistent or worsening symptoms. Continue any medications as previously prescribed by your physician. You should follow up with your primary doctor as soon as possible regarding today's emergency department visit. . Please make sure your doctor reviews the results of your emergency evaluation. Thank you for coming to the Emergency Department today for your care. It was a pleasure to see you today. Please note that your evaluation is INCOMPLETE until you follow-up with your doctor. - Post Discharge Activity
== END 2018-04-29 01:26 | disposition home or self-care (01) ==
LOC: FER 00:51
PROC: 0HQFXZZ Repair Right Hand Skin, External Approach (ICD-10-PCS; principal; 2018-04-29)
PROC: 3E0234Z Introduction of Serum, Toxoid and Vaccine into Muscle, Percutaneous Approach (ICD-10-PCS; 2018-04-29)
DX: S61.011A Laceration without foreign body of right thumb without damage to nail, initial encounter (principal); W26.0XXA Contact with knife, initial encounter; Y93.89 Activity, other specified; Y92.9 Unspecified place or not applicable; I10 Essential (primary) hypertension; E78.00 Pure hypercholesterolemia, unspecified; K21.9 Gastro-esophageal reflux disease without esophagitis; Z95.5 Presence of coronary angioplasty implant and graft
CPT/HCPCS: 90715; 99281-25

== ENCOUNTER 2018-05-11 07:23 | Emergency (ER) | payer BC ==
--- NOTE | 2018-05-11 07:24 | PDOC ---
Suture Removal/Wound Check HPI - History of Present Illness Chief Complaint: Suture/Staple Removal(Here) Stated Complaint: SUTUTRE REMOVAL Time Seen by Provider: 05/11/18 07:24 History Source: Yes: Patient Exam Limitations: Yes: No Limitations Treated at: [facility] ED Date of Last ED visit: 04/29/18 - Previous ED Treatment Type of procedure performed on last visit: Yes: Laceration Repair Tetanus Immunization: Yes: Up to Date Antibiotics Prescribed: No - Onset of Previous Treatment Comment:: 57 yo M presents for suture removal s/p lac repair 12 days ago. He cut his R thumb while opening a can. 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 He has noticed intermittent bleeding, last time it occurred was last night. +Swelling. No drainage of pus, no fever. He states he kept the wound covered while working. Past History - Past Medical History Allergies/Adverse Reactions: Allergies Allergy/AdvReac Type Severity Reaction Status Date / Time No Known Allergies Allergy Verified 05/11/18 07:24 Home Medications: Ambulatory Orders Aspirin Coated [Ecotrin -] 81 mg PO DAILY #30 tablet.ec 01/03/18 Lisinopril [Prinivil] 10 mg PO DAILY #30 tablet 01/03/18 Metoprolol Succinate [Toprol XL -] 25 mg PO DAILY #30 tab.sr.24h 01/03/18 Omeprazole 40 mg PO DAILY 03/14/18 Oxycodone HCl/Acetaminophen [Percocet 5-325 mg Tablet] 1 tab PO Q4H PRN #20 tablet MDD 6 03/15/18 Clindamycin [Cleocin -] 300 mg PO Q6HPO #28 capsule 05/11/18 Anemia: No Asthma: No Cancer: No Cardiac Disorders: Yes (stents) CVA: No COPD: No CHF: No Dementia: No Diabetes: No GI Disorders: Yes (gerd) Disorders: No HTN: Yes Hypercholesterolemia: Yes Liver Disease: No Seizures: No Thyroid Disease: No - Surgical History Abdominal Surgery: Yes (HERNIA-right groin) Cardiac Surgery: (stents) Orthopedic Surgery: Yes (right ankle surgery,carpal tunnel right wrist) - Suicide/Smoking/Psychosocial Hx Smoking History: Never smoked Have you smoked in the past 12 months: No 'Breaking Loose' booklet given: 04/29/18 Hx Alcohol Use: Yes (BEER DAILY) Drug/Substance Use Hx: No Substance Use Type: Alcohol Hx Substance Use Treatment: No *Review of Systems - Review of Systems Able to Perform ROS?: Yes Comments:: GENERAL/CONSTITUTIONAL: No fever or chills. No weakness. MUSCULOSKELETAL: No joint or muscle swelling or pain. No neck or back pain. SKIN: No rash. +Swelling to laceration repair site. NEUROLOGIC: No headache, vertigo, loss of consciousness, or change in strength/ sensation. HEMATOLOGIC/LYMPHATIC: No anemia, easy bleeding, or history of blood clots. *Physical Exam - Physical Exam Comments: GENERAL: Awake, alert, and fully oriented, in no acute distress EXTREMITIES: R thumb with [address], +mild erythema and mod swelling. No drainage of pus or blood. Normal range of motion of thumb. Remainder of extremities with normal range of motion, no edema. No clubbing or cyanosis. No cords, erythema, or tenderness NEUROLOGICAL: Cranial nerves II through XII grossly intact. Normal speech, normal gait SKIN: Warm, Dry, normal turgor, no rashes. Procedures - Additional Procedures Progress: 05/11/18 07:31 Six sutures removed with forceps and #11 blade without difficulty. The deep portion of the wound is approximated, but the more shallow portion (the epidermis) is not completely closed. Slight oozing of blood from one of the sites after suture removed. Steri-strips placed. Medical Decision Making - Medical Decision Making 05/11/18 07:35 Wound was examined on patient arrival. At this point it has been 12 days and he has been showing some signs of infection. It is unlikely to heal further with sutures in place, therefore I removed to prevent any worsening infection beneath the wound. No drainage of pus, just mild oozing of blood from one site. One of the sutures was no longer present, patient states one may have fallen out , as he was using his hands as he normally would. The wound did not completely close, however, the deeper portion is closed. It is better at this point to have it heal by secondary intention, as leaving the sutures in longer may lead to worsening infection or abscess formation. Steri-strips placed. Patient counseled to follow up with hand surgeon to monitor the wound and the healing process. Started on clindamycin in the ED. Will also mitochondrial disorders counselor him to use warm salt water soaks twice per day once the steristrips fall off. *DC/Admit/Observation/Transfer Diagnosis at time of Disposition: Visit for suture removal - Discharge Dispostion Disposition: HOME Condition at time of disposition: Stable Decision to Admit order: No - Prescriptions Prescriptions: Clindamycin [Cleocin -] 300 mg PO Q6HPO #28 capsule - Referrals Referrals: Zaid Hargrove MD [Staff Physician] - - Patient Instructions Printed Discharge Instructions: DI for Suture Removal, DI for Surgical Site Infection Additional Instructions: Follow up with hand specialist Dr. Mar- please call today for an appointment and follow up within 2-3 days. Keep your thumb clean and dry, do not disturb the steri-strips until they fall off on their own. Take clindamycin as prescribed. If you have severe pain, swelling, drainage of pus, or fever, return to the ER immediately. Once the steri-strips fall off, soak your thumb in warm water with epsom salt for 20 minutes twice a day, then bandage with clean, dry gauze. Do not use bandaids, as they will develop moisture beneath and may impede healing. - Post Discharge Activity
[2018-05-11 07:30] VITALS: BP 137/93; PULSE 63; TEMP 98; BMI 25.8
[2018-05-11] MEDS ORDERED: CLINDAMYCIN HCL 300 MG CAPSULE PO ONE (07:32)
[2018-05-11] MEDS ORDERED: CLINDAMYCIN HCL 150 MG CAPSULE (FP) ONE (07:35)
== END 2018-05-11 07:40 | disposition home or self-care (01) ==
LOC: FER 07:23
DX: Z48.02 Encounter for removal of sutures (principal)
CPT/HCPCS: 99281-25

== ENCOUNTER 2020-07-04 11:40 | Emergency (ER) | payer BC ==
[2020-07-04 11:46] VITALS: BP 164/89; PULSE 80; TEMP 98; BMI 28.7
[2020-07-04] MEDS ORDERED: SULFAMETHOXAZOLE/TRIMETHOPRIM 800MG/160MG D.S. TABLET PO ONE (11:49)
[2020-07-04] MEDS ORDERED: DIPHTH,PERTUSS(ACELL),TET 0.5 ML DISP.SYRIN IM ONE (11:49)
== END 2020-07-04 12:10 | disposition home or self-care (01) ==
LOC: FER 11:40
PROC: 3E0234Z Introduction of Serum, Toxoid and Vaccine into Muscle, Percutaneous Approach (ICD-10-PCS; principal; 2020-07-04)
DX: S61.112A Laceration without foreign body of left thumb with damage to nail, initial encounter (principal); L08.9 Local infection of the skin and subcutaneous tissue, unspecified; L03.012 Cellulitis of left finger
CPT/HCPCS: 90715; 99284-25

== ENCOUNTER 2020-07-05 05:27 | Emergency (ER) | payer BC ==
[2020-07-05 05:36] VITALS: BP 144/96; PULSE 89; TEMP 97.9; BMI 28.7
[2020-07-05] MEDS ORDERED: VANCOMYCIN 1 GM in D5W (PRE-DOCKED) 1,000 MG/250 ML IVPB ONE (05:47)
[2020-07-05] MEDS ORDERED: VANCOMYCIN 1,000 MG VIAL (RESTRICTED TO ID ONLY) ONE (05:50)
== END 2020-07-05 08:01 | disposition home or self-care (01) ==
LOC: FER 05:27
DX: L03.012 Cellulitis of left finger (principal)
CPT/HCPCS: 87070; 87186; 87205; 99284-25

== ENCOUNTER 2021-05-13 14:08 | Emergency (ER) | payer BC ==
[2021-05-13 14:22] VITALS: BP 123/79; PULSE 89; TEMP 98.8; BMI 28.7
== END 2021-05-13 16:07 | disposition home or self-care (01) ==
LOC: FER 14:08
DX: S80.11XA Contusion of right lower leg, initial encounter (principal); W22.8XXA Striking against or struck by other objects, initial encounter; Y92.9 Unspecified place or not applicable
CPT/HCPCS: 73590-TC-RT-FY; 99284-25

== ENCOUNTER 2021-07-17 22:59 | Emergency (ER) | payer BC ==
[2021-07-17 23:04] VITALS: BP 141/85; PULSE 89; TEMP 97.9; BMI 28.7
[2021-07-17] MEDS ORDERED: ALBUTEROL SO4 HFA INHALER IH ONE ×2 (23:07→23:15)
== END 2021-07-17 23:19 | disposition home or self-care (01) ==
LOC: FER 22:59
PROC: 3E0F7GC Introduction of Other Therapeutic Substance into Respiratory Tract, Via Natural or Artificial Opening (ICD-10-PCS; principal; 2021-07-17)
DX: R06.2 Wheezing (principal)
CPT/HCPCS: 99283-25

== ENCOUNTER 2022-06-11 11:20 | Emergency (ER) | payer BC ==
[2022-06-11 11:33] VITALS: BP 166/78; PULSE 78; RESP 18; TEMP 98.5; BMI 28.7
== END 2022-06-11 12:47 | disposition home or self-care (01) ==
LOC: FER 11:20
DX: S99.912A Unspecified injury of left ankle, initial encounter (principal); X50.9XXA Other and unspecified overexertion or strenuous movements or postures, initial encounter
CPT/HCPCS: 73610-TC-LT-FY; 99283-25

== ENCOUNTER 2023-06-24 15:58 | Emergency (ER) | payer BC ==
[2023-06-24 16:03] VITALS: BP 118/81; PULSE 73; RESP 18; TEMP 98.5; BMI 28.7
[2023-06-24] MEDS ORDERED: IBUPROFEN 600 MG TABLET (FP) PO ONE ×2 (16:07→16:18)
[2023-06-24] MEDS ORDERED: predniSONE 20 MG TABLET (UD) PO ONE ×2 (17:02→17:35)
[2023-06-24] MEDS ORDERED: DOXYCYCLINE HYCLATE 100 MG CAPSULE PO ONE ×2 (17:22→17:36)
[2023-06-24] MEDS ORDERED: COLCHICINE 0.6 MG CAP PO ONE (17:35)
[2023-06-24] MEDS ORDERED: COLCHICINE 0.6 MG TAB ONE (17:36)
[2023-06-24] MEDS ORDERED: predniSONE 20 MG TABLET (UD) ONE (17:36)
== END 2023-06-24 17:52 | disposition home or self-care (01) ==
LOC: FER 15:58
DX: M25.572 Pain in left ankle and joints of left foot (principal); R22.42 Localized swelling, mass and lump, left lower limb; L53.9 Erythematous condition, unspecified
CPT/HCPCS: 73610-TC-LT-FY; 73630-TC-LT; 99283-25

== ENCOUNTER 2023-07-06 16:23 | Emergency (ER) | payer BC ==
[2023-07-06 16:42] VITALS: BP 156/83; PULSE 83; RESP 16; TEMP 98.3; BMI 28.7
[2023-07-06] MEDS ORDERED: KETOROLAC TROMETHAMINE 30 MG/1 ML VIAL IM ONE (17:07)
[2023-07-06] MEDS ORDERED: KETOROLAC TROMETHAMINE 30 MG/1 ML VIAL ONE (17:41)
== END 2023-07-06 18:29 | disposition home or self-care (01) ==
LOC: FER 16:23
PROC: 3E0233Z Introduction of Anti-inflammatory into Muscle, Percutaneous Approach (ICD-10-PCS; principal; 2023-07-06)
DX: M19.90 Unspecified osteoarthritis, unspecified site (principal); M25.571 Pain in right ankle and joints of right foot; M25.471 Effusion, right ankle
CPT/HCPCS: 73610-TC-RT-FY; 73630-TC-RT-FY; 99284-25

== ENCOUNTER 2023-07-16 07:46 | Emergency (ER) | payer BC ==
[2023-07-16 07:51] VITALS: BP 178/92; PULSE 87; RESP 16; TEMP 98; BMI 28.7
[2023-07-16] MEDS ORDERED: KETOROLAC TROMETHAMINE 60 MG/2 ML VIAL IM ONE (08:21)
[2023-07-16] MEDS ORDERED: KETOROLAC TROMETHAMINE 60 MG/2 ML VIAL ONE (08:32)
[2023-07-16 10:35] LABS: HEMATOCRIT 39.3 % (35.4-49); HEMOGLOBIN 13.3 G/dL (11.7-16.9); MCH 31.5 pg (25.7-33.7); MCHC 33.8 g/dl (32.0-35.9); MEAN CELL VOLUME 93.2 fl (80-96); MEAN PLT VOLUME 10.4 fl (7.5-11.1); PLATELET COUNT 124.1 10^3/uL (134-434); RBC 4.22 10^6/uL (4.00-5.60); RDW 14.1 % (11.9-15.9); WHITE BLOOD COUNT 5.4 10^3/uL (4.0-10.8)
[2023-07-16 10:46] LABS: ALBUMIN 3.7 g/dl (3.4-5.0); BILIRUBIN,TOTAL 0.5 mg/dl (0.2-1); CALCIUM 9.2 mg/dl (8.5-10.1); CREATININE 0.8 mg/dl (0.6-1.3); TOT PROT 5.9 g/dl (6.4-8.2); URIC ACID 7.5 mg/dl (2.6-7.2)
[2023-07-16 10:47] LABS: PLATELET ESTIMATE SLT DECREASE
== END 2023-07-16 10:51 | disposition home or self-care (01) ==
LOC: FER 07:46
PROC: 3E0233Z Introduction of Anti-inflammatory into Muscle, Percutaneous Approach (ICD-10-PCS; principal; 2023-07-16)
DX: M25.572 Pain in left ankle and joints of left foot (principal); R22.42 Localized swelling, mass and lump, left lower limb; M1A.0720 Idiopathic chronic gout, left ankle and foot, without tophus (tophi)
CPT/HCPCS: 36415; 80053; 84550; 85027; 99284-25

== ENCOUNTER 2023-10-09 11:32 | Emergency (ER) | payer BC ==
[2023-10-09 11:39] VITALS: BP 171/99; PULSE 69; RESP 18; TEMP 98.9; BMI 28.7
[2023-10-09 12:39] LABS: HEMATOCRIT 48.7 % (35.4-49); HEMOGLOBIN 15.7 G/dL (11.7-16.9); MCH 29.7 pg (25.7-33.7); MCHC 32.2 g/dl (32.0-35.9); MEAN CELL VOLUME 92.2 fl (80-96); MEAN PLT VOLUME 9.6 fl (7.5-11.1); PLATELET COUNT 144.1 10^3/uL (134-434); RBC 5.28 10^6/uL (4.00-5.60); WHITE BLOOD COUNT 6.5 10^3/uL (4.0-10.8)
[2023-10-09 12:58] LABS: ALBUMIN 4.7 g/dl (3.4-5.0); BILIRUBIN,TOTAL 0.7 mg/dl (0.2-1); CALCIUM 10.5 mg/dl (8.5-10.1); POTASSIUM 4.5 mmol/L (3.5-5.1); TOT PROT 7.5 g/dl (6.4-8.2)
[2023-10-09 14:23] LABS: PLATELET ESTIMATE DECREASED
== END 2023-10-09 15:13 | disposition home or self-care (01) ==
LOC: FER 11:32
DX: R29.810 Facial weakness (principal); J32.2 Chronic ethmoidal sinusitis
CPT/HCPCS: 36415; 70450-TC; 70486-TC; 80053; 85027; 99284-25

== ENCOUNTER 2024-01-15 05:58 | Emergency (ER) | payer BC ==
[2024-01-15 06:18] VITALS: BP 123/76; PULSE 86; RESP 20; TEMP 97.7; BMI 28.8
[2024-01-15] MEDS ORDERED: IBUPROFEN 400 MG TABLET (FP) PO ONE (06:35)
[2024-01-15] MEDS: IBUPROFEN 400 MG TABLET (FP) PO ONE (06:36)
== END 2024-01-15 06:44 | disposition home or self-care (01) ==
LOC: FER 05:58
DX: M10.072 Idiopathic gout, left ankle and foot (principal)
CPT/HCPCS: 99283-25

== ENCOUNTER 2024-03-25 22:04 | Emergency (ER) | payer BC ==
[2024-03-25 22:11] VITALS: BP 176/98; PULSE 70; RESP 16; TEMP 98.1; BMI 28.1
[2024-03-25] MEDS ORDERED: ALBUTEROL SO4 2.5/IPRATROPIUM 0.5 INH SOL 3 ML VIAL.NEB. NEB ONE (22:43)
[2024-03-25 22:52] LABS: HEMATOCRIT 41.4 % (35.4-49); HEMOGLOBIN 13.3 G/dL (11.7-16.9); MCH 29.4 pg (25.7-33.7); MCHC 32.1 g/dl (32.0-35.9); MEAN CELL VOLUME 91.6 fl (80-96); MEAN PLT VOLUME 8.9 fl (7.5-11.1); PLATELET COUNT 145.4 10^3/uL (134-434); RBC 4.52 10^6/uL (4.00-5.60); RDW 14.6 % (11.9-15.9); WHITE BLOOD COUNT 6.1 10^3/uL (4.0-10.8)
[2024-03-25] MEDS ORDERED: ACETAMINOPHEN INJECTION 100 ML ONE (22:52)
[2024-03-25] MEDS: ALBUTEROL SO4 2.5/IPRATROPIUM 0.5 INH SOL 3 ML VIAL.NEB. NEB ONE ×2 (22:56→23:06)
[2024-03-25] MEDS: ACETAMINOPHEN 1000 MG/100 ML BAG IVPB ONE (22:56)
[2024-03-25 23:01] LABS: INR 1.01 (0.83-1.09); PROTHROMBIN TIME (PATIENT) 11.5 SEC (9.7-13.0)
[2024-03-25 23:04] LABS: ACTIVATED PTT 32.8 SECONDS (25.2-36.5)
[2024-03-25 23:09] LABS: ALBUMIN 4.5 g/dl (3.4-5.0); ALK PHOS 61 U/L (45-117); ANION GAP 10 mmol/L (4-13); BILIRUBIN,TOTAL 0.4 mg/dl (0.2-1); CALCIUM 9.9 mg/dl (8.5-10.1); CHLORIDE 104 mmol/L (98-107); CO2 26 mmol/L (21-32); GLUCOSE,RANDOM 85 mg/dl (74-106); POTASSIUM 3.6 mmol/L (3.5-5.1); SGOT/AST 18 U/L (15-37); SGPT/ALT 10 U/L (7-52); SODIUM 140 mmol/L (136-145); TOT PROT 7.2 g/dl (6.4-8.2)
[2024-03-25 23:32] LABS: VENOUS BASE EXCESS -1.8 mmol/L (-2-2); VENOUS O2 SATURATION 67.6 % (70-80); VENOUS PCO2 45.9 mmHg (38-52); VENOUS PH 7.341 (7.310-7.410)
[2024-03-25 23:34] LABS: PLATELET ESTIMATE ADEQUATE
[2024-03-26] MEDS ORDERED: ALBUTEROL SO4 HFA INHALER IH ONE ×2 (01:09→01:21)
[2024-03-26] MEDS ORDERED: IBUPROFEN 400 MG TABLET (FP) PO ONE (01:18)
[2024-03-26] MEDS ORDERED: IBUPROFEN 600 MG TABLET (FP) PO ONE (01:21)
== END 2024-03-26 01:27 | disposition home or self-care (01) ==
LOC: FER 22:04
DX: J45.901 Unspecified asthma with (acute) exacerbation (principal); K42.9 Umbilical hernia without obstruction or gangrene
CPT/HCPCS: 36415; 71045-TC-FY; 74177-TC; 80053; 82803; 83605; 85027; 85610; 85730; 86850; 86900; 86901; 93005; 99285-25; J0131